=== PATIENT | male | born 1950 | race Caucasian/White ===

== ENCOUNTER 2018-10-27 06:50 | Day surgery (SDC) | payer BC ==
--- NOTE | 2018-10-25 10:13 | PREOPHP ---
DATE OF ADMISSION: 10/27/2018 HISTORY OF PRESENT ILLNESS: This 67-year-old patient is admitted for elective cataract surgery of th e left eye. The patient complains of decreased vision for the past 6 months' time with no prior hist ory of eye disease or injury. The patient's systemic history is positive for hypercholesterolemia an d non-insulin dependent diabetes mellitus. CURRENT MEDICATIONS INCLUDE: 1. Metformin. 2. Gemfibrozil. 3. Lopid. ALLERGIES: THERE ARE NO KNOWN ALLERGIES. PHYSICAL EXAMINATION: The visual acuity with best correction is 20/20 in the right eye and 20/70 in the left eye. Slit lamp examination reveals anterior cortical and posterior subcapsular cataract in the left eye. Applanation tonometry is 12 mmHg. Examination of the retina is within normal limits w ith no evidence of diabetic retinopathy. DIAGNOSIS: Anterior cortical and posterior subcapsular cataract, left eye. PLAN: Cataract extraction with lens implant, left eye. The risks and alternatives to the surgery reich ve been discussed with the patient as well as the hope for improvement of visual acuity leading to gr eater ability to perform activities of daily living. The patient understands this and agrees to proc eed with surgery. Dictated By: MIS HANLEY/CHRISTIANO Conf#: [id number] DID#: [id number] CC: MIS LOPEZ MD;*EndCC*
[2018-10-27] VITALS (9 sets, daily range): BP systolic 110–118; BP diastolic 67–77; PULSE 59–71; RESP 16–18; Ht 185.4 cm; Wt 101.0 kg
[~2018-10-27] VITALS: Ht 185.4 cm; Wt 101.0 kg
[2018-10-27] MEDS ORDERED: LIDOCAINE 2% (SDV) 5 ML INJ ONE ×2 (07:00→09:26)
[2018-10-27] MEDS ORDERED: PROPOFOL 200 MG INJ ONE (07:00)
[2018-10-27] MEDS ORDERED: METF500T24 PO (07:24)
[2018-10-27] MEDS ORDERED: GEMF600T4 PO (07:25)
[2018-10-27] MEDS ORDERED: MOXIFLOXACIN 0.5% 3 ML OPH OPER SCH (08:00)
[2018-10-27] MEDS ORDERED: TROPICAMIDE 1% 15 ML OPH OPER SCH (08:00)
[2018-10-27] MEDS ORDERED: SOD CHLORIDE 0.9% 1,000 ML IV SCH (08:00)
[2018-10-27] MEDS ORDERED: CYCLOPENTOLATE/PHENYLEPH 5 ML OPH XX SCH (08:00)
[2018-10-27] MEDS ORDERED: DICLOFENAC 0.1% 2.5 ML OPH OPER SCH (08:00)
[2018-10-27] MEDS ORDERED: DEXAMETHASONE 4 MG/ML 1 ML INJ ONE (10:22)
[2018-10-27] MEDS ORDERED: TETRACAINE 0.5% 4 ML OPH ONE (10:22)
[2018-10-27] MEDS ORDERED: CEFAZOLIN 1 GM INJ ONE (10:22)
[2018-10-27] MEDS ORDERED: CARBACHOL 0.01% 1.5 ML OPH INJ ONE (10:22)
[2018-10-27] MEDS ORDERED: BUPIVACAINE 0.75% (MPF) 10 ML INJ ONE (10:22)
--- NOTE | 2018-10-27 10:32 | PREAC ---
Date/Time of Note Date/Time of Note DATE: 10/27/18 TIME: 10:31 Anesthesia Eval and Record Evaluation Time Pre-Procedure Interview DATE: 10/27/18 TIME: 10:31 Age 67 Sex male NPO: 8 hrs Preoperative diagnosis left eye cataract Planned procedure left cataract extraction Past Medical History Past Medical History: Includes Cardio: Dyslipidemia Endo: Diabetes Surgery & Anesthesia Issues No known issue Meds Anticoagulation: No Beta Kortney within 24 hr: No Reason Beta Kortney not given: Pt. not on B-Kortney Reported Medications Gemfibrozil* (Gemfibrozil*) 600 Mg Tablet, 600 MG PO BID, TAB 10/27/18 Metformin Hcl* (Metformin Hcl*) 500 Mg Tablet, 500 MG PO WITH DINNER, #30 TAB 10/27/18 Current Medications Diclofenac Sodium (Voltaren 0.1%) 1 drop Q5 MIN X 3 OPER Last administered on 10/27/18at 08:31; Admin Dose 1 DROP; Start 10/27/18 at 08:00 Tropicamide (Mydriacyl 1%) 1 drop Q5 MIN X3 OPER Last administered on 10/27/18at 08:32; Admin Dose 1 DROP; Start 10/27/18 at 08:00 Moxifloxacin HCl (Vigamox) 1 drop Q5 MIN X 3 OPER Last administered on 10/27/18at 08:32; Admin Dose 1 DROP; Start 10/27/18 at 08:00 Non-Formulary Medication 1 ea Q5 MIN X 3 XX Last administered on 10/27/18at 08:32; Admin Dose 1 EA; Start 10/27/18 at 08:00 Sodium Chloride 1,000 ml @ 25 mls/hr Q24H IV Last administered on 10/27/18at 09:00; Admin Dose 25 MLS/HR; Start 10/27/18 at 08:00 Meds reviewed: Yes Allergies Coded Allergies: No Known Allergy (Unverified , 10/27/18) Allergies Reviewed: Yes Labs/Studies Labs Reviewed: Reviewed by anesthesiologist test: N/A Studies: ECG (wnl), CXR (napd) Pre-procedure Exam Last vitals Vital Signs Date Temp Pulse Resp B/P (MAP) Pulse Ox O2 O2 Flow FiO2 Time Delivery Rate 10/27/18 96.9 59 18 116/68 99 Room Air 06:54 (84) Airway: Adequate mouth opening, Adequate thyromental dist Mallampati: Mallampati II Teeth: Normal Lung: Normal Heart: Normal ASA Physical Status ASA physical status: 2 Emergency: None Planned Anesthetic General/MAC: MAC Planned Pain Management Local by surgeon Pre-operative Attestations Prior to commencing anesthesia and surgery, the patient was re-evaluated, there was verification of: *The patient's identity *The results of appropriate recent lab work and preoperative vital signs *The above evaluation not changing prior to induction *Anesthetic plan, risk benefits, alternative and complications discussed with patient/family; questions answered; patient/family understands, accepts and wishes to proceed. Jermaine Schmidt M.D. Oct 27, 2018 10:32
[2018-10-27] MEDS ORDERED: NA HYALURONATE/CHONDROITIN 0.5 ML SYG OP ONE (10:59)
[2018-10-27] MEDS ORDERED: OXYCODONE/ACETAMINOPHEN (5/325) TAB PO PRN ×2 (11:00)
[2018-10-27] MEDS ORDERED: FENTAnyl 50 MCG/ML VIAL IV PRN ×3 (11:00)
[2018-10-27] MEDS ORDERED: HYDROmorphONE 1 MG/5 ML IV SYRINGE IV PRN ×3 (11:00)
[2018-10-27] MEDS ORDERED: EPHEDrine SULFATE 50 MG/5 ML SYG IV PRN (11:00)
[2018-10-27] MEDS ORDERED: IPRATROPIUM (NEB) 0.5 MG/2.5 ML AMP HHN PRN (11:00)
[2018-10-27] MEDS ORDERED: LABETALOL HCL 20MG INJ IV PRN (11:00)
[2018-10-27] MEDS ORDERED: DIPHENHYDRAMINE 50 MG INJ IV PRN (11:00)
[2018-10-27] MEDS ORDERED: MIDAZOLAM 1 MG/ML 2 ML INJ IV PRN (11:00)
[2018-10-27] MEDS ORDERED: MEPERIDINE 25 MG INJ IV PRN (11:00)
[2018-10-27] MEDS ORDERED: hydrALAzine 20 MG INJ IV PRN (11:00)
[2018-10-27] MEDS ORDERED: TRIMETHOBENZAMIDE 100 MG/ML VIAL IM PRN (11:00)
[2018-10-27] MEDS ORDERED: ONDANSETRON 4 MG INJ IV PRN (11:00)
[2018-10-27] MEDS ORDERED: ALBUTEROL 0.083% (NEB) 2.5 MG/3 ML AMP HHN PRN (11:00)
--- NOTE | 2018-10-27 11:15 | NUR ---
PACU SP LEFT EYE CATARACT EXT WITH IOL. EYE SHIELD IN PLACE. HOB UP AT 30 DEG. PER PT PAIN 0. COND STABLE. Addendum: 10/27/18 at 1135 by BETHANIE NAVARRETE RN Amended: Links added.
--- NOTE | 2018-10-27 11:18 | PAC ---
Date/Time of Note Date/Time of Note DATE: 10/27/18 TIME: 11:18 Post-Anesthesia Notes Post-Anesthesia Note Last documented vital signs Vital Signs Date Temp Pulse Resp B/P (MAP) Pulse Ox O2 O2 Flow FiO2 Time Delivery Rate 10/27/18 98.5 11:17 10/27/18 59 18 116/68 99 Room Air 06:54 (84) Activity: WNL Respiratory function: WNL Cardiovascular function: WNL Mental status: Baseline Pain reasonably controlled: Yes Hydration appropriate: Yes Nausea/Vomiting absent: Yes YOKO WILSON Oct 27, 2018 11:18
--- NOTE | 2018-10-27 11:19 | SIPON ---
Date/Time of Note Date/Time of Note DATE: 10/27/18 TIME: 11:17 Operative Report Preoperative Diagnosis posterior subcapsular cataract os Postoperative Diagnosis same Operation/Procedure Performed cataract extraction with lens implant os Surgeon mis lopez unit assistant none Anesthesia: MAC Estimated blood loss: none Transfusion Required none Specimen none Grafts/Implants posterior chamber lens implant Complications none MIS LOPEZ MD Oct 27, 2018 11:19
--- NOTE | 2018-10-27 11:56 | NUR ---
PACU TRANSFERRED TO [facility] IN [place] [place]. JADE JOHNSON 010. REPORT GIVEN TO WILL STAHL. Addendum: 10/27/18 at 1157 by BETHANIE NAVARRETE RN Amended: Links added.
--- NOTE | 2018-10-27 12:58 | OPR ---
"DATE OF OPERATION: 10/27/2018 PREOPERATIVE DIAGNOSIS: Cortical and posterior subcapsular cataract in the left eye. POSTOPERATIVE DIAGNOSIS: Cortical and posterior subcapsular cataract in the left eye. OPERATION PERFORMED: Cataract extraction, phacoemulsification with posterior chamber intraocular myrtle s implant, left eye. SURGEON: Mis Kirkland MD ANESTHESIOLOGIST: Jermaine Schmidt MD ANESTHESIA: Local standby. PROCEDURE: The patient was brought to the operating room and placed on the table with an IV in place and the patient attached to an conveyor monitor. Oxygen was given via face mask. After some intravenous sedation was administered, local anesthesia was given using Xylocaine 2% with epinephrine, mixed with Marcaine 0.5%. This was given in a lid block and retrobulbar injection. The p atient was then prepped and draped in the usual sterile manner. A wire lid speculum was inserted between the lids of the left eye. A Superblade was used to enter the anterior chamber at the corneoscleral limbus at the 10:30 o'clock position. A separate incision was made using a 3.0-mm keratome which entered the corneoscleral junction at the 12 o'clock position. Thr ough this 3-mm opening, an irrigating cystotome was introduced into the anterior chamber. The chamber was filled with Viscoat and an anterior capsulotomy was performed. Balanced salt solution was then u sed for hydrodissection of the lens. A phacoemulsification handpiece was then brought into the field and introduced into the anterior chamber. The lens nucleus was emulsified using a deep groove and cr acking the nucleus into quadrants. Following this, each quadrant was aspirated and emulsified at the pupillary margin. After this was completed, the irrigation/aspiration handpiece was brought to the field, introduced in to the posterior chamber, and the lens cortical material was removed. When this was completed, additi onal Viscoat was injected into the anterior and posterior chambers. The 3-mm opening had its internal lips enlarged, and then the posterior chamber intraocular lens phong uring 21.0 diopters ([employer]ausch [employer] Lomb [id number] | [employer] [id number]) was then injected into the posterior chamber using the lens injector system. After the leading haptic was introduced into the capsular bag and th e lens optic was present in the center of the eye, the injector was removed and the trailing haptic w as grasped with non-toothed forceps and introduced into the capsular fold superiorly. A Sinskey hook was then used to rotate the intraocular lens so that the lips were oriented in the horizontal meridia n. One 10-0 nylon suture was placed across the wound. Prior to tying, the irrigation/aspiration handpiece was reintroduced into the anterior chamber to rem ove the Viscoat. Miochol was instilled to constrict the pupil, and then the 10-0 nylon suture was tie d. The ends were cut short and then the knot was buried. Then, 0.5 mL of dexamethasone and 0.5 mL of Ancef were injected into the sub-Tenon space in the infer ior fornix. Ciloxan drops were then placed on the surface of the eye. The speculum was removed and a patch was applied. The patient then left the operating room in satisfactory condition. Dictated By: MIS HANLEY/CHRISTIANO Conf#: [id number] DID#: [id number]"
== END 2018-10-27 12:10 | disposition home or self-care (01) ==
LOC: SDS 06:50
PROVIDERS: ATTEND Ophthalmology
DX: H25.042 Posterior subcapsular polar age-related cataract, left eye (principal); E78.5 Hyperlipidemia, unspecified; E11.9 Type 2 diabetes mellitus without complications; Z79.84 Long term (current) use of oral hypoglycemic drugs
CPT/HCPCS: 66984; 82962; J0690; J1100; V2632; Z7512; Z7610